=== PATIENT | female | born 1960 | race Caucasian/White ===

== ENCOUNTER → 2016-11-02 | Outpatient (CLI) | payer BC, OTHER | LOC: RAD 03:51 | DX: Z12.31 Encounter for screening mammogram for malignant neoplasm of breast (principal) ==

== ENCOUNTER → 2017-11-24 | Outpatient (CLI) | payer BC, OTHER | LOC: RAD 07:26 | DX: Z12.31 Encounter for screening mammogram for malignant neoplasm of breast (principal) ==

== ENCOUNTER → 2017-11-29 | Outpatient (CLI) | payer BC, OTHER | LOC: ULTRA 03:06 | DX: N60.81 Other benign mammary dysplasias of right breast (principal); N63.41 Unspecified lump in right breast, subareolar ==

== ENCOUNTER → 2018-12-08 | Outpatient (CLI) | payer BC, OTHER | LOC: RAD 01:46 | DX: Z12.31 Encounter for screening mammogram for malignant neoplasm of breast (principal) ==

== ENCOUNTER → 2019-12-19 | Outpatient (CLI) | payer BC | LOC: BC 08:42 | PROVIDERS: ATTEND Family Medicine | DX: Z12.31 Encounter for screening mammogram for malignant neoplasm of breast (principal) ==

== ENCOUNTER → 2020-12-19 | Outpatient (CLI) | payer BC | LOC: BC 09:27 | PROVIDERS: ATTEND Family Medicine | DX: Z12.31 Encounter for screening mammogram for malignant neoplasm of breast (principal) ==